=== PATIENT | male | born 1980 | race Two or more races ===

== ENCOUNTER 2017-05-05 12:35 | Outpatient (CLI) | payer OTHER ==
--- NOTE | 2017-05-05 14:57 | Diagnostic Imaging Report ---
Indication:Scrotal pain Technique: Real time grayscale and duplex Doppler imaging of the scrotum performed. Comparison: None Findings: The size, contour, and echogenicitiy of the testis appear normal bilaterally. There is no mass within the scrotum. Trace left hydrocele noted. There is a left varicocele present which enhances on Valsalva and best demonstrated by color Doppler imaging. There is good doppler evidence of blood flow within both testes. Epididimi are unremarkable. Impression: No testicular mass or torsion. Trace left hydrocele Left varicocele
--- NOTE | 2017-05-05 16:05 | Diagnostic Imaging Report ---
Indication: Back pain Technique: MRI examination of the Lumbar spine was performed in a 1.5 Shadia magnet. Sequences obtained include sagittal and axial T1 and T2 fast spin echo, and sagittal STIR. No IV gadolinium was given Comparison: none Findings: Bone marrow signal and alignment of the lumbar spine is normal. The visualized distal part of the spinal cord is unremarkable. The tip of the conus medullaris is seen at L1. There is no spinal stenosis. The L4-5 disc demonstrates a mild desiccation with some loss of the normally seen central T2 hyperintense signal. There is a curvilinear T2 hyperintense focus along the posterior annular margin associated with a very small protrusion. This indents the anterior part of the thecal sac. There is no visualized nerve root impingement. Mild facet arthropathy noted at this level. L1-2, L2-3, L3-4 and L5-S1 discs appear normal. Some facet arthropathy demonstrated throughout the lumbar spine characterized by hypertrophy. No abnormal fluid collections are seen. The spinal ligaments are unremarkable. No soft tissue swelling or edema identified. Impression: A tiny disc protrusion at L4-5 associated with annular fissure. No visualized nerve root compression. Mild generalized facet arthropathy at multiple levels.
== END 2017-05-05 14:35 | disposition home or self-care (01) ==
LOC: MRI 12:35
DX: N50.819 Testicular pain, unspecified (principal); N43.3 Hydrocele, unspecified; I86.1 Scrotal varices; M54.16 Radiculopathy, lumbar region; M51.26 Other intervertebral disc displacement, lumbar region
CPT/HCPCS: 72148; 76870